=== PATIENT | female | born 1980 | race Caucasian/White ===

== ENCOUNTER → 2016-05-15 14:08 | Outpatient (CLI) | payer MEDICARE | END | disposition home or self-care (01) | LOC: D.MRI 05-10 15:00 → D.CT 05-10 15:00 | DX: M54.16 Radiculopathy, lumbar region (principal) ==

== ENCOUNTER 2017-05-05 18:50 | Emergency (ER) | payer MEDICARE | END 2017-05-05 20:52 | disposition home or self-care (01) | LOC: D.ER 18:50 | DX: M79.601 Pain in right arm (principal); E11.9 Type 2 diabetes mellitus without complications ==

== ENCOUNTER → 2017-11-26 15:15 | Outpatient (CLI) | payer MEDICARE ==
[2017-11-26 15:31] LABS: BASOPHILS 0.6 % (0-2); EOSINOPHILS 3.3 % (0-7); HEMATOCRIT 37.5 % (36.0-48.0); HEMOGLOBIN 12.7 g/dL (12-16); IMMATURE GRANULOCYTES 0.2 % (0-5); MCH 30.5 pg (26.0-34.0); MCHC 33.9 g/dL (31.0-37.0); MCV 90.1 fL (80.0-100.0); MEAN PLATELET VOLUME 10.8 fL (7.4-10.4); MONOCYTES 6.6 % (2-11); NEUTROPHILS 52.3 % (40-80); RBC 4.16 10x6/uL (4.00-5.40); WBC 6.4 10x3/uL (4.8-10.8)
[2017-11-26 15:36] LABS: PLATELET COUNT 206 10x3/uL (130-400)
[2017-11-26 15:43] LABS: CREATININE - SERUM 0.7 mg/dL (0.6-1.3)
== END | disposition home or self-care (01) ==
LOC: D.LABREF 15:15
PROVIDERS: Internal Medicine Infectious Disease
DX: G25.0 Essential tremor (principal); Z96.89 Presence of other specified functional implants; E11.9 Type 2 diabetes mellitus without complications

== ENCOUNTER → 2017-12-03 13:09 | Outpatient (CLI) | payer MEDICARE ==
[2017-12-03 13:49] LABS: BASOPHILS 0.3 % (0-2); EOSINOPHILS 3.8 % (0-7); HEMATOCRIT 36.8 % (36.0-48.0); HEMOGLOBIN 12.7 g/dL (12-16); IMMATURE GRANULOCYTES 0.2 % (0-5); LYMPHOCYTES 39.2 % (15-50); MCH 30.2 pg (26.0-34.0); MCHC 34.5 g/dL (31.0-37.0); MCV 87.4 fL (80.0-100.0); MEAN PLATELET VOLUME 11.1 fL (7.4-10.4); MONOCYTES 8.2 % (2-11); NEUTROPHILS 48.3 % (40-80); RBC 4.21 10x6/uL (4.00-5.40); RDW 12.5 % (11.5-14.5); WBC 6.6 10x3/uL (4.8-10.8)
[2017-12-03 13:58] LABS: CREATININE - SERUM 0.7 mg/dL (0.6-1.3)
[2017-12-03 14:14] LABS: PLATELET COUNT 158 10x3/uL (130-400)
== END | disposition home or self-care (01) ==
LOC: D.LABREF 13:09
PROVIDERS: Internal Medicine Infectious Disease
DX: T85.79XA Infection and inflammatory reaction due to other internal prosthetic devices, implants and grafts, initial encounter (principal); B95.61 Methicillin susceptible Staphylococcus aureus infection as the cause of diseases classified elsewhere

== ENCOUNTER → 2017-12-10 11:53 | Outpatient (CLI) | payer MEDICARE ==
[2017-12-10 12:29] LABS: BASOPHILS 0.3 % (0-2); EOSINOPHILS 2.2 % (0-7); HEMATOCRIT 41.7 % (36.0-48.0); HEMOGLOBIN 14.9 g/dL (12-16); IMMATURE GRANULOCYTES 0.2 % (0-5); LYMPHOCYTES 34.9 % (15-50); MCH 31.2 pg (26.0-34.0); MCHC 35.7 g/dL (31.0-37.0); MCV 87.2 fL (80.0-100.0); MEAN PLATELET VOLUME 10.7 fL (7.4-10.4); MONOCYTES 8.3 % (2-11); NEUTROPHILS 54.1 % (40-80); RBC 4.78 10x6/uL (4.00-5.40); RDW 12.4 % (11.5-14.5); WBC 5.9 10x3/uL (4.8-10.8)
[2017-12-10 12:38] LABS: PLATELET COUNT 124 10x3/uL (130-400)
[2017-12-10 12:46] LABS: CREATININE - SERUM 0.7 mg/dL (0.6-1.3)
== END | disposition home or self-care (01) ==
LOC: D.LABREF 11:53
PROVIDERS: Internal Medicine
DX: T85.79XA Infection and inflammatory reaction due to other internal prosthetic devices, implants and grafts, initial encounter (principal); E11.9 Type 2 diabetes mellitus without complications; B95.61 Methicillin susceptible Staphylococcus aureus infection as the cause of diseases classified elsewhere

== ENCOUNTER → 2017-12-17 21:29 | Outpatient (CLI) | payer MEDICARE ==
[2017-12-17 21:40] LABS: BASOPHILS 0.4 % (0-2); EOSINOPHILS 1.5 % (0-7); HEMATOCRIT 40.4 % (36.0-48.0); HEMOGLOBIN 13.5 g/dL (12-16); IMMATURE GRANULOCYTES 0.1 % (0-5); LYMPHOCYTES 33.6 % (15-50); MCH 30.4 pg (26.0-34.0); MCHC 33.4 g/dL (31.0-37.0); MEAN PLATELET VOLUME 11.1 fL (7.4-10.4); MONOCYTES 7.1 % (2-11); NEUTROPHILS 57.3 % (40-80); RBC 4.44 10x6/uL (4.00-5.40); RDW 12.9 % (11.5-14.5); WBC 8.5 10x3/uL (4.8-10.8)
[2017-12-17 21:49] LABS: PLATELET COUNT 195 10x3/uL (130-400)
== END | disposition home or self-care (01) ==
LOC: D.LABREF 21:29
PROVIDERS: Internal Medicine
DX: T85.79XA Infection and inflammatory reaction due to other internal prosthetic devices, implants and grafts, initial encounter (principal); B95.61 Methicillin susceptible Staphylococcus aureus infection as the cause of diseases classified elsewhere

== ENCOUNTER → 2018-09-16 14:36 | Outpatient (CLI) | payer MEDICARE, MEDICAID ==
[2018-09-16 15:01] LABS: BASOPHILS 0.7 % (0-2); HEMATOCRIT 33.7 % (36.0-48.0); HEMOGLOBIN 11.4 g/dL (12-16); IMMATURE GRANULOCYTES 0.2 % (0-5); LYMPHOCYTES 33.9 % (15-50); MCH 30.1 pg (26.0-34.0); MCHC 33.8 g/dL (31.0-37.0); MCV 88.9 fL (80.0-100.0); MONOCYTES 6.2 % (2-11); RBC 3.79 10x6/uL (4.00-5.40); RDW 12.3 % (11.5-14.5)
[2018-09-16 15:04] LABS: PLATELET COUNT 117 10x3/uL (130-400)
[2018-09-16 15:21] LABS: CALC OSMOLALITY 289 mosm/kg (275-300); CARBON DIOXIDE 23.9 mmol/L (21.0-32.0); CHLORIDE - SERUM 104 mmol/L (98-107); CREATININE - SERUM 0.7 mg/dL (0.6-1.3); POTASSIUM - SERUM 3.6 mmol/L (3.5-5.1); SODIUM 139 mmol/L (136-145); UREA NITROGEN 10 mg/dL (7-18); eGFR NON AFRICAN AMERICAN > 90 mL/min (90-120)
[2018-09-16 15:37] LABS: GLUCOSE 334 mg/dL (74-106)
== END | disposition home or self-care (01) ==
LOC: D.LABREF 14:36
PROVIDERS: ATTEND Neurological Surgery
DX: G25.0 Essential tremor (principal)

== ENCOUNTER → 2018-09-23 15:22 | Outpatient (CLI) | payer MEDICARE, MEDICAID ==
[2018-09-23 16:08] LABS: BASOPHILS 0.8 % (0-2); EOSINOPHILS 3.2 % (0-7); HEMATOCRIT 34.1 % (36.0-48.0); HEMOGLOBIN 11.7 g/dL (12-16); IMMATURE GRANULOCYTES 0.2 % (0-5); LYMPHOCYTES 42.3 % (15-50); MCH 30.2 pg (26.0-34.0); MCHC 34.3 g/dL (31.0-37.0); MCV 87.9 fL (80.0-100.0); MONOCYTES 6.2 % (2-11); NEUTROPHILS 47.3 % (40-80); RBC 3.88 10x6/uL (4.00-5.40); RDW 12.3 % (11.5-14.5)
[2018-09-23 16:16] LABS: PLATELET COUNT 142 10x3/uL (130-400)
[2018-09-23 16:20] LABS: CALC OSMOLALITY 291 mosm/kg (275-300); CALCIUM 8.4 mg/dL (8.5-10.1); CARBON DIOXIDE 26.3 mmol/L (21.0-32.0); CHLORIDE - SERUM 104 mmol/L (98-107); CREATININE - SERUM 0.8 mg/dL (0.6-1.3); GLUCOSE 330 mg/dL (74-106); POTASSIUM - SERUM 3.9 mmol/L (3.5-5.1); SODIUM 140 mmol/L (136-145); UREA NITROGEN 12 mg/dL (7-18); VANCOMYCIN - TROUGH 13.9 ug/mL (10.0-20.0); eGFR NON AFRICAN AMERICAN 85 mL/min (90-120)
== END | disposition home or self-care (01) ==
LOC: D.LABREF 15:22
PROVIDERS: ATTEND Neurological Surgery
DX: F15.21 Other stimulant dependence, in remission (principal)

== ENCOUNTER → 2018-09-30 16:11 | Outpatient (CLI) | payer MEDICARE, MEDICAID ==
[2018-09-30 17:03] LABS: BASOPHILS 0.2 % (0-2); EOSINOPHILS 0.4 % (0-7); HEMATOCRIT 38.3 % (36.0-48.0); HEMOGLOBIN 13.2 g/dL (12-16); IMMATURE GRANULOCYTES 0.2 % (0-5); LYMPHOCYTES 27.5 % (15-50); MCH 29.8 pg (26.0-34.0); MCHC 34.5 g/dL (31.0-37.0); MCV 86.5 fL (80.0-100.0); MONOCYTES 6.4 % (2-11); NEUTROPHILS 65.3 % (40-80); RBC 4.43 10x6/uL (4.00-5.40); RDW 12.2 % (11.5-14.5); WBC 10.1 10x3/uL (4.8-10.8)
[2018-09-30 17:20] LABS: CALC OSMOLALITY 279 mosm/kg (275-300); CALCIUM 9.4 mg/dL (8.5-10.1); CARBON DIOXIDE 23.6 mmol/L (21.0-32.0); CHLORIDE - SERUM 102 mmol/L (98-107); CREATININE - SERUM 0.7 mg/dL (0.6-1.3); GLUCOSE 269 mg/dL (74-106); SODIUM 135 mmol/L (136-145); UREA NITROGEN 16 mg/dL (7-18); VANCOMYCIN - TROUGH 12.7 ug/mL (10.0-20.0); eGFR NON AFRICAN AMERICAN > 90 mL/min (90-120)
[2018-09-30 17:46] LABS: PLATELET COUNT 182 10x3/uL (130-400)
== END | disposition home or self-care (01) ==
LOC: D.LABREF 16:11
PROVIDERS: ATTEND Neurological Surgery
DX: T81.31XA Disruption of external operation (surgical) wound, not elsewhere classified, initial encounter (principal); T81.49XA Infection following a procedure, other surgical site, initial encounter

== ENCOUNTER → 2018-10-07 17:24 | Outpatient (CLI) | payer MEDICARE, MEDICAID ==
[2018-10-07 19:48] LABS: BASOPHILS 0.4 % (0-2); EOSINOPHILS 2.4 % (0-7); HEMATOCRIT 37.3 % (36.0-48.0); HEMOGLOBIN 12.9 g/dL (12-16); IMMATURE GRANULOCYTES 0.1 % (0-5); LYMPHOCYTES 30.2 % (15-50); MCH 29.7 pg (26.0-34.0); MCHC 34.6 g/dL (31.0-37.0); MCV 85.7 fL (80.0-100.0); MEAN PLATELET VOLUME 10.9 fL (7.4-10.4); MONOCYTES 8.7 % (2-11); NEUTROPHILS 58.2 % (40-80); PLATELET COUNT 169 10x3/uL (130-400); RBC 4.35 10x6/uL (4.00-5.40); RDW 12.1 % (11.5-14.5); WBC 7.8 10x3/uL (4.8-10.8)
[2018-10-07 20:01] LABS: ANION GAP 17.2 mmol/L (8-16); CALCIUM 8.4 mg/dL (8.5-10.1); CARBON DIOXIDE 21.6 mmol/L (21.0-32.0); CREATININE - SERUM 0.9 mg/dL (0.6-1.3); POTASSIUM - SERUM 3.8 mmol/L (3.5-5.1); VANCOMYCIN - TROUGH 9.8 ug/mL (10.0-20.0)
== END | disposition home or self-care (01) ==
LOC: D.LABREF 17:24
PROVIDERS: ATTEND Neurological Surgery
DX: T81.49XA Infection following a procedure, other surgical site, initial encounter (principal)

== ENCOUNTER → 2018-10-14 15:31 | Outpatient (CLI) | payer MEDICARE, MEDICAID ==
[2018-10-14 16:30] LABS: BASOPHILS 0.3 % (0-2); EOSINOPHILS 2.2 % (0-7); HEMATOCRIT 35.4 % (36.0-48.0); HEMOGLOBIN 12.5 g/dL (12-16); IMMATURE GRANULOCYTES 0.2 % (0-5); LYMPHOCYTES 34.7 % (15-50); MCH 29.7 pg (26.0-34.0); MCHC 35.3 g/dL (31.0-37.0); MCV 84.1 fL (80.0-100.0); MEAN PLATELET VOLUME 10.6 fL (7.4-10.4); NEUTROPHILS 52.6 % (40-80); PLATELET COUNT 162 10x3/uL (130-400); RBC 4.21 10x6/uL (4.00-5.40); RDW 12.2 % (11.5-14.5); WBC 9.2 10x3/uL (4.8-10.8)
[2018-10-14 16:47] LABS: ANION GAP 14.5 mmol/L (8-16); CALCIUM 8.7 mg/dL (8.5-10.1); CARBON DIOXIDE 24.9 mmol/L (21.0-32.0); CREATININE - SERUM 1.6 mg/dL (0.6-1.3); POTASSIUM - SERUM 3.4 mmol/L (3.5-5.1); VANCOMYCIN - TROUGH 16.1 ug/mL (10.0-20.0)
== END | disposition home or self-care (01) ==
LOC: D.LABREF 15:31
PROVIDERS: ATTEND Neurological Surgery
DX: T81.49XA Infection following a procedure, other surgical site, initial encounter (principal)

== ENCOUNTER → 2018-10-21 15:25 | Outpatient (CLI) | payer OTHER, MEDICAID ==
[2018-10-21 15:53] LABS: BASOPHILS 0.5 % (0-2); HEMATOCRIT 29.9 % (36.0-48.0); HEMOGLOBIN 10.4 g/dL (12-16); LYMPHOCYTES 41.7 % (15-50); MCH 29.2 pg (26.0-34.0); MCHC 34.8 g/dL (31.0-37.0); MONOCYTES 8.8 % (2-11); RBC 3.56 10x6/uL (4.00-5.40); RDW 11.9 % (11.5-14.5); WBC 5.6 10x3/uL (4.8-10.8)
[2018-10-21 16:19] LABS: PLATELET COUNT 103 10x3/uL (130-400)
[2018-10-21 16:25] LABS: ANION GAP 11.1 mmol/L (8-16); CALCIUM 8.7 mg/dL (8.5-10.1); POTASSIUM - SERUM 3.1 mmol/L (3.5-5.1); VANCOMYCIN - TROUGH 3.5 ug/mL (10.0-20.0)
== END | disposition home or self-care (01) ==
LOC: D.LABREF 15:25
PROVIDERS: ATTEND Neurological Surgery
DX: B99.9 Unspecified infectious disease (principal); Z51.81 Encounter for therapeutic drug level monitoring; Z79.2 Long term (current) use of antibiotics

== ENCOUNTER → 2019-03-28 12:25 | Outpatient (CLI) | payer MEDICAID | END | disposition home or self-care (01) | LOC: D.LDO 12:25 | PROVIDERS: ATTEND Student in an Organized Health Care Education/Training Program | DX: O36.8190 Decreased fetal movements, unspecified trimester, not applicable or unspecified (principal); Z3A.00 Weeks of gestation of pregnancy not specified ==

== ENCOUNTER → 2019-04-17 18:26 | Outpatient (CLI) | payer MEDICAID | END | disposition home or self-care (01) | LOC: D.LDO 18:26 | PROVIDERS: ATTEND Obstetrics & Gynecology | DX: O36.8130 Decreased fetal movements, third trimester, not applicable or unspecified (principal); Z3A.31 31 weeks gestation of pregnancy ==